=== PATIENT | male | born 1965 | race Caucasian/White ===

== ENCOUNTER 2016-07-21 10:10 | Emergency (ER) | payer OTHER ==
[~2016-07-21] VITALS: Wt 100.0 kg
[~2016-07-21 10:10] MED LIST: HYDR-906 PO; METH500T PO; NAPR-260 PO
--- NOTE | 2016-07-21 11:59 | RADRPT ---
PROCEDURE: Bilateral knee x-ray CLINICAL INDICATION: CHronic bilateral knee pain TECHNIQUE: AP, lateral and oblique views of the bilateral knees were obtained. COMPARISON: None FINDINGS: Right knee: There is normal mineralization. No acute fracture or dislocation is seen. There is no joint effusion. Marked medial compartment joint space narrowing with medial lateral compartment joint line spurring and subchondral sclerosis. Marked patellofemoral joint space narrowing, joint line spurring, and soto bchondral sclerosis. There is no significant soft tissue swelling. Left knee: There is normal mineralization. No acute fracture or dislocation is seen. There is no joint effusion. There are no significant degenerative changes. There is no significant soft tissue swelling. IMPRESSION: 1. Advanced tricompartment degenerative changes of the right knee. No fracture or dislocation. 2. Normal x-ray of the left knee. RPTAT:AAJJ Physician Jayy Date Time Electronically viewed and signed by Physician Jayy on 07/21/2016 11:58 VALERIA/
[2016-07-21] MEDS ORDERED: NAPR-260 PO (12:03)
--- NOTE | 2016-07-21 12:06 | ERD ---
ER Documentation Chief Complaint Date/Time DATE: 07/21/16 TIME: 12:04 Chief Complaint chronic knee pain for the past few months. no recent trauma HPI 50-year-old male with history of chronic knee pain comes in with exacerbated medial compartment pain bilaterally for the past 2-3 months. He has not had any trauma to this area, fevers or chills. He states that he has been told that he has had a meniscus injury over 20 years ago. His pain is in the medial aspect, nonradiating, bilateral, moderate. ROS All systems reviewed and are negative except as per history of present illness. Medications Home Meds Active Scripts Naproxen* (Naprosyn*) 500 Mg Tablet, 500 MG PO BID Y for PAIN AND/OR INFLAMMATION, #30 TAB Prov:EHSAN JAIMES PA-C 07/21/16 Naproxen* (Naprosyn*) 500 Mg Tablet, 500 MG PO BID Y for PAIN AND/OR INFLAMMATION, #20 TAB Prov:FLAQUITO ALMAGUER DO 04/18/16 Methocarbamol* (Robaxin*) 500 Mg Tab, 500 MG PO Q8, #14 TAB Prov:FLAQUITO ALMAGUER DO 04/18/16 Hydrocodone/Acetaminophen ([place] 5-325 Tablet) 1 Each Tablet, 1 EACH PO Q6, #14 TAB Prov:FLAQUITO ALMAGUER DO 04/18/16 PMhx/Soc Medical and Surgical Hx: pt denies Medical Hx, pt denies Surgical Hx Hx Alcohol Use: No Hx Substance Use: No Hx Tobacco Use: No Smoking Status: Never smoker Physical Exam Vitals Vital Signs Date Time Temp Pulse Resp B/P Pulse Ox O2 Delivery O2 Flow Rate FiO2 07/21/16 10:13 97.9 64 20 134/67 98 Physical Exam General: Well-developed, well-nourished. The patient appears in no acute distress. HEENT: Head is normocephalic, atraumatic. No scleral icterus. Neck: Supple. Nontender. Lungs: Clear to auscultation. Normal air movement. Heart: Regular rate and rhythm. S1 and S2 are normal. No murmurs, gallops, or rubs. Abdomen: Soft, nontender, nondistended. Bowel sounds are normoactive. Extremities: No clubbing or cyanosis. Normal pulses. Moving extremities x 4. No weakness. Full range of motion to bilateral knees. No bony deformities, no erythema, warmth. Neurologic: Alert and oriented 3. No focal deficits. Skin: Normal turgor. No rash or lesions. Results 24 hrs PROCEDURE: Bilateral knee x-ray CLINICAL INDICATION: CHronic bilateral knee pain TECHNIQUE: AP, lateral and oblique views of the bilateral knees were obtained. COMPARISON: None FINDINGS: Right knee: There is normal mineralization. No acute fracture or dislocation is seen. There is no joint effusion. Marked medial compartment joint space narrowing with medial lateral compartment joint line spurring and subchondral sclerosis. Marked patellofemoral joint space narrowing, joint line spurring, and subchondral sclerosis. There is no significant soft tissue swelling. Left knee: There is normal mineralization. No acute fracture or dislocation is seen. There is no joint effusion. There are no significant degenerative changes. There is no significant soft tissue swelling. IMPRESSION: 1. Advanced tricompartment degenerative changes of the right knee. No fracture or dislocation. 2. Normal x-ray of the left knee. RPTAT:AAJJ Physician Jayy Date Time Electronically viewed and signed by Physician Jayy on 07/21/2016 11:58 VALERIA/ Procedures/MDM 51-year-old male comes with bilateral knee pain, he has medial compartment knee pain consistent with tricompartmental osteoarthritis is seen on his x-rays. There is no evidence of any fracture, subluxation, or signs of any infectious process. Departure Diagnosis: Primary Impression: Knee pain Condition: Good Patient Instructions: Osteoarthritis: Common Sites, Osteoarthritis: Managing Pain Referrals: COMMUNITY CLINICS YOU HAVE RECEIVED A MEDICAL SCREENING EXAM AND THE RESULTS INDICATE THAT YOU DO NOT HAVE A CONDITION THAT REQUIRES URGENT TREATMENT IN THE EMERGENCY DEPARTMENT. FURTHER EVALUATION AND TREATMENT OF YOUR CONDITION CAN WAIT UNTIL YOU ARE SEEN IN YOUR DOCTORS OFFICE WITHIN THE NEXT 1-2 DAYS. IT IS YOUR RESPONSIBILITY TO MAKE AN APPOINTMENT FOR FOLOW-UP CARE. IF YOU HAVE A PRIMARY DOCTOR --you should call your primary doctor and schedule an appointment IF YOU DO NOT HAVE A PRIMARY DOCTOR YOU CAN CALL OUR PHYSICIAN REFERRAL HOTLINE AT IF YOU CAN NOT AFFORD TO SEE A PHYSICIAN YOU CAN CHOSE FROM THE FOLLOWING [facility] CLINICS [facility] [address] [facility] [address] [place] [facility] [address] [facility] [address] [facility] [address] [facility]. [facility] [address] [facility]. [facility] YOU HAVE RECEIVED A MEDICAL SCREENING EXAM AND THE RESULTS INDICATE THAT YOU DO NOT HAVE A CONDITION THAT REQUIRES URGENT TREATMENT IN THE EMERGENCY DEPARTMENT. FURTHER EVALUATION AND TREATMENT OF YOUR CONDITION CAN WAIT UNTIL YOU ARE SEEN IN YOUR DOCTORS OFFICE WITHIN THE NEXT 1-2 DAYS. IT IS YOUR RESPONSIBILITY TO MAKE AN APPOINTMENT FOR FOLOW-UP CARE. IF YOU HAVE A PRIMARY DOCTOR --you should call your primary doctor and schedule and appointment IF YOU DO NOT HAVE A PRIMARY DOCTOR YOU CAN CALL OUR PHYSICIAN REFERRAL HOTLINE AT . IF YOU CAN NOT AFFORD TO SEE A PHYSICIAN YOU CAN CHOSE FROM THE FOLLOWING [facility]: [facility] [id number] [place] [address] [facility] [address] [place], [place] [id number] [place] [address] [address] [place] [address] [facility] URGENT CARE/SPECIALTIES Additional Instructions: Llame al doctor MAANA y ron candice OBDULIA PARA DENTRO DE 1-2 COLVIN.Dgale a la secretaria que nosotros le instruimos hacer esta obdulia.Avise o llame si soto condicin se empeora antes de la obdulia. Regresa aqui si peor o no mejor. EHSAN JAIMES PA-C Jul 21, 2016 12:06
== END 2016-07-21 12:26 | disposition home or self-care (01) ==
LOC: FTE 10:10
DX: M25.562 Pain in left knee (principal); M25.561 Pain in right knee